=== PATIENT | female | born 1995 | race Caucasian/White ===

== ENCOUNTER 2024-12-21 14:38 | Emergency (ER) | payer SELFPAY ==
[2024-12-21 14:40] VITALS: BP 128/92
[2024-12-21 15:01] LABS: % Basophils 0.4 % (0-2); % Eosinophils 1.1 % (0-6); % Immature Granulocytes 0.3 % (0-0.5); % Lymphocytes 19.3 % (20.5-51.1); % Monocytes 5.8 % (1.7-9.3); % Neutrophils 73.1 % (42.2-75.2); Absolute Eosinophils 0.1 10^3/uL (0-0.7); Absolute Lymphocytes 1.5 10^3/uL (1.2-3.4); Absolute Monocytes 0.5 10^3/uL (0.1-0.6); Absolute Neutrophils 5.9 10^3/uL (1.4-6.5); Hematocrit 42.1 % (37.0-47.0); Hemoglobin 13.8 g/dL (12.0-16.0); Mean Corp Hgb Conc. 32.8 g/dL (33.0-37.0); Mean Corpuscular Volume 79.4 fL (81.0-99.0); Mean Platelet Volume 8.9 fL (7.4-10.4); Nucleated Red Blood Cells % 0 %; Platelet Count 462 10^3/uL (130-400); Red Cell Dist. Width 15.4 % (11.5-14.5)
[2024-12-21 15:12] LABS: HCG, Serum Qualitative Screen Negative
[2024-12-21 15:16] LABS: ALT (SGPT) 35 U/L (0-35); AST (SGOT) 24 U/L (14-36); Alkaline Phosphatase 73 U/L (38-126); Blood Urea Nitrogen 10 mg/dl (7-17); Calcium 9.6 mg/dl (8.4-10.2); Carbon Dioxide 26 mmol/L (22-30); Chloride 104 mmol/L (98-107); Glucose 100 mg/dl (70-99); Potassium 4.5 mmol/L (3.5-5.1); Sodium 139 mmol/L (135-145); Total Bilirubin 0.5 mg/dl (0.2-1.3); Total Protein 8.8 g/dl (6.3-8.2); eGFR > 60.00
[2024-12-21] MEDS: DUONEB 3 ML INH (16:20)
--- NOTE | 2024-12-21 17:10 | ED.GENMED ---
History of Present Illness
General
Chief Complaint: Cold/Flu/URI Symptoms
Source: patient
Exam Limitations: none
Time Seen by Provider: 12/21/24 15:19
History of Present Illness
History of Present Illness:
29-year-old female presents with persistent cough and fatigue 10 days following COVID diagnosis. She had a fever at the onset. She notes her temperature yesterday was elevated at 99. She denies any production to the cough. She still notes some
fatigue. No vomiting. No other complaints at this time
Past History
Past History
ED Past Medical History: None
ED Past Surgical History: None
Social History
Tobacco: Non-smoker
Phy Exam
Physical Exam
Physical Exam:
General: Well-appearing female no acute respiratory distress
HEENT: Normocephalic. Atraumatic. No stridor
heart: RRR, no murmurs
Lungs: CTA bilaterally but has dry cough throughout the exam
Extremities: No cyanosis
SKin: No rash
Course
Orders/Labs/Results
Orders:
Orders
12/21/24 14:44
Test Result ONCE
CR Chest - 2 Views Urgent
Comment:
Reason For Exam: cough
12/21/24 14:50
Complete Blood Count/With Diff Urgent
Comprehensive Metabolic Panel Urgent
HCG, Serum Qualitative Screen Urgent
Comment: Notify provider if positive test present
12/21/24 15:59
Ipratropium/Albuterol Sulfate [Duoneb] 3 ml INH R NOW STA
12/21/24 16:36
Influenza A+B Rapid Molecular Urgent
PRASHANT Source: Nasal Swab
Specimen Description:
Abnormal Lab Results
12/21/24
14:50
MCV 79.4 L fL
(81.0-99.0)
MCH 26.0 L pg
(27.0-31.0)
MCHC 32.8 L g/dL
(33.0-37.0)
RDW 15.4 H %
(11.5-14.5)
Plt Count 462 H 10^3/uL
(130-400)
Lymphocytes % 19.3 L %
(20.5-51.1)
Glucose 100 H mg/dl
(70-99)
Total Protein 8.8 H g/dl
(6.3-8.2)
12/21/24 14:50
12/21/24 14:50
Vital Signs
Initial and Last Documented VS:
Initial Vital Signs
Temp Pulse Resp BP Pulse Ox
98.8 F 105 20 128/92 98
12/21/24 14:40 12/21/24 14:40 12/21/24 14:40 12/21/24 14:40 12/21/24 14:40
Last Documented Vital Signs
Temp Pulse Resp BP Pulse Ox
98.8 F 105 20 128/92 98
12/21/24 14:40 12/21/24 14:40 12/21/24 14:40 12/21/24 14:40 12/21/24 14:40
MDM/Problems Addressed
Differential Diagnosis Includes:
Patient overall looks nontoxic. She did receive some improvement with nebulizer. Chest x-ray is clear. Suspect healing airways post COVID infection. Stable for discharge no indication for admission
*Critical Care Note
Total Time (30-74mins, 75-104mins- exclusive of procedures): Not Applicable
ED Attending Note
-
Portions of this chart may have been created with voice recognition software.� Occasional wrong word or��sound alike� substitutions may have occurred due to the inherent limitations of voice recognition software.
Discharge Plan
Departure
Patient Disposition: Home (Routine Discharge)
Date of Disposition: 12/21/24
Time of Disposition: 17:17
Patient with high blood pressure during this ER visit?: No
Discharge Problem:
COVID-19
Instructions: Acute Bronchitis, Adult (DC)
Prescriptions:
New
albuterol sulfate [Ventolin HFA] 90 mcg/actuation HFA aerosol inhaler
1 inh inhalation Q6H PRN (Reason: shortness of breath or wheezing) Qty: 6.7 0RF
No Action
ketorolac 10 MG tablet
10 mg PO Q6HPRN PRN (Reason: pain) Qty: 20 0RF
Referrals:
NONE,* [Family Provider] -
Stand Alone Forms: Return to Work
Activity Restrictions/Additional Instructions:
Use inhaler if needed. Continue to rest and drink plenty of fluids. Return if worse otherwise follow-up with your doctor
Interventions
Interventions:
*Risk Screen - Suicide Last Done: 12/21/24 14:40
*General Assessment Last Done: 12/21/24 14:40
*Neglect/Abuse Screening Last Done: 12/21/24 14:40
ED- Pulmonary Assessment Last Done: 12/21/24 14:56
Discharge Date and Time
Print Language: FRENCH
== END 2024-12-21 17:50 | disposition home or self-care (01) ==
LOC: EMR 14:38
PROVIDERS: EMERGENCY PHYSICIAN Student in an Organized Health Care Education/Training Program
DX: U07.1 COVID-19 (principal)
CPT/HCPCS: 99284; 94640; 71046; 80053; 84703; 85025; 87502

== ENCOUNTER 2025-01-30 20:15 | Emergency (ER) | payer SELFPAY ==
[2025-01-30 20:21] VITALS: BP 138/95
[2025-01-30 20:47] LABS: % Basophils 0.9 % (0-2); % Eosinophils 2.8 % (0-6); % Immature Granulocytes 0.2 % (0-0.5); % Lymphocytes 32.4 % (20.5-51.1); % Monocytes 4.9 % (1.7-9.3); % Neutrophils 58.8 % (42.2-75.2); Absolute Basophils 0.1 10^3/uL (0-0.2); Absolute Eosinophils 0.2 10^3/uL (0-0.7); Absolute Lymphocytes 2.1 10^3/uL (1.2-3.4); Absolute Monocytes 0.3 10^3/uL (0.1-0.6); Absolute Neutrophils 3.8 10^3/uL (1.4-6.5); Hematocrit 41.8 % (37.0-47.0); Hemoglobin 14.2 g/dL (12.0-16.0); Mean Corpuscular Hgb 26.5 pg (27.0-31.0); Mean Platelet Volume 8.5 fL (7.4-10.4); Nucleated Red Blood Cells % 0 %; Platelet Count 480 10^3/uL (130-400); Red Blood Cell Count 5.36 10^6/uL (4.20-5.40); Red Cell Dist. Width 14.9 % (11.5-14.5); White Blood Cell Count 6.5 10^3/uL (4.8-10.8)
[2025-01-30 21:06] LABS: COVID-19 Antigen Negative (Negative)
[2025-01-30 21:07] LABS: Monotest Negative (Negative)
[2025-01-30 21:12] LABS: ALT (SGPT) 23 U/L (0-35); AST (SGOT) 24 U/L (14-36); Albumin 4.5 g/dl (3.5-5.0); Alkaline Phosphatase 77 U/L (38-126); Blood Urea Nitrogen 11 mg/dl (7-17); Calcium 9.9 mg/dl (8.4-10.2); Carbon Dioxide 22 mmol/L (22-30); Chloride 106 mmol/L (98-107); Glucose 99 mg/dl (70-99); Potassium 4.7 mmol/L (3.5-5.1); Sodium 137 mmol/L (135-145); Total Bilirubin 0.3 mg/dl (0.2-1.3); eGFR > 60.00
--- NOTE | 2025-01-30 22:21 | ED.GENMED ---
History of Present Illness
General
Chief Complaint: Cold/Flu/URI Symptoms
Source: patient
Exam Limitations: none
Time Seen by Provider: 01/30/25 22:05
Nursing documentation reviewed up to this point in time: agreed with
History of Present Illness
History of Present Illness:
29-year-old female presents for coughing fits, dizzy spell this a.m. in the shower, congestion, headache, feels short of breath. Within the past 2 months she has had COVID, flu, bronchitis.
Her symptoms improved until a few days ago when she developed a worsening cough with paroxysms that gets her anxious and feeling like she cannot breathe. She denies fever or chills. Denies N/B/D/C. Denies chest pain.
Past History
Past History
ED Past Medical History: None
ED Past Surgical History: None
Social History
Tobacco: Non-smoker
Alcohol: Occasional
Personal: Single
Living: with family
Employment: Employed
Review of Systems
Review of Systems
Allergies reviewed?: Yes
All Other Systems: ROS reviewed and negative except as documented in HPI and ROS
Constitutional: Denies fever or chills
EENT: Denies sore throat
Respiratory: Reports cough; Denies trouble breathing
Cardiac: Denies chest pain
ABD/GI: Denies abdominal pain, nausea, vomiting or diarrhea
Musculoskeletal: Reports no symptoms
Skin: Reports no symptoms
Neurological: Reports no symptoms
Phy Exam
Physical Exam
Physical Exam:
GENERAL: No acute distress. A&Ox3.
CONSTITUTIONAL: Afebrile.
EYES: clear, conjunctivae normal
ENMT: moist mucus membranes
RESPIRATORY: Regular respirations, nonlabored, lungs clear. No significant cough during stay
CARDIOVASCULAR: Regular rate and rhythm, no murmurs, no rubs.
GI: Soft, nontender, normal BS
MUSCULOSKELETAL: Moves with ease. Well perfused.
SKIN: Warm, dry, pink
PSYCH: Normal mood and affect. Well kept, interactive and appropriate
NEUROLOGIC: Awake, alert and oriented. No focal neurological deficits
Course
Orders/Labs/Results
Orders:
Orders
01/30/25 20:24
CR Chest - 2 Views Urgent
Comment:
Reason For Exam: cough
01/30/25 20:27
COVID-19 Antigen Urgent
Source: Nasal Swab
Complete Blood Count/With Diff Urgent
Comprehensive Metabolic Panel Urgent
Monotest Urgent
Influenza A+B Rapid Molecular Urgent
PRASHANT Source: Nasal Swab
Specimen Description:
01/30/25 22:19
Azithromycin [Zithromax] 500 mg PO NOW STA
Abnormal Lab Results
01/30/25
20:27
MCV 78.0 L fL
(81.0-99.0)
MCH 26.5 L pg
(27.0-31.0)
RDW 14.9 H %
(11.5-14.5)
Plt Count 480 H 10^3/uL
(130-400)
01/30/25 20:27
01/30/25 20:27
Vital Signs
Initial and Last Documented VS:
Initial Vital Signs
Temp Pulse Resp BP Pulse Ox
98.1 F 116 20 138/95 98
01/30/25 20:21 01/30/25 20:21 01/30/25 20:21 01/30/25 20:21 01/30/25 20:21
Last Documented Vital Signs
Temp Pulse Resp BP Pulse Ox
98.6 F 100 20 122/88 98
01/30/25 22:29 01/30/25 22:29 01/30/25 22:29 01/30/25 22:29 01/30/25 22:29
MDM/Problems Addressed
Differential Diagnosis Includes:
Covid, flu, pna, bronchitis
MDM/Problems Addressed:
29-year-old female presents for coughing fits, dizzy spell this a.m. in the shower, congestion, headache, feels short of breath. Within the past 2 months she has had COVID, flu, bronchitis.
Her symptoms improved until a few days ago when she developed a worsening cough with paroxysms that gets her anxious and feeling like she cannot breathe. She denies fever or chills. Denies N/B/D/C. Denies chest pain.
Afebrile, NAD
Lungs CTA
She has not been on antibiotics for her previously diagnosed bronchitis,
Chest x-ray is negative
CBC, CMP unremarkable
COVID-negative
Flu negative
[place] negative
Plan: Treat for bronchitis/atypical pneumonia with azithromycin.
*Critical Care Note
Total Time (30-74mins, 75-104mins- exclusive of procedures): Not Applicable
ED Attending Note
-
Portions of this chart may have been created with voice recognition software.� Occasional wrong word or��sound alike� substitutions may have occurred due to the inherent limitations of voice recognition software.
Discharge Plan
Departure
Patient Disposition: Home (Routine Discharge)
Date of Disposition: 01/30/25
Time of Disposition: 22:18
Patient with high blood pressure during this ER visit?: Yes
Condition: Good
Discharge Problem:
Acute bronchitis
Instructions: Acute Bronchitis, Adult (DC)
Prescriptions:
New
azithromycin [Zithromax] 250 mg tablet
250 mg PO DAILY Qty: 4 0RF
No Action
ketorolac 10 MG tablet
10 mg PO Q6HPRN PRN (Reason: pain) Qty: 20 0RF
albuterol sulfate [Ventolin HFA] 90 mcg/actuation HFA aerosol inhaler
1 inh inhalation Q6H PRN (Reason: shortness of breath or wheezing) Qty: 6.7 0RF
Referrals:
Your, Doctor [Other] - As needed
Stand Alone Forms: Return to Work
Activity Restrictions/Additional Instructions:
As we discussed, I sent a prescription to your pharmacy for the azithromycin, started tomorrow as you were given your first dose here tonight.
Cough drops with menthol may help minimize your cough
Interventions
Interventions:
*Risk Screen - Suicide Last Done: 01/30/25 22:30
*General Assessment Last Done: 01/30/25 20:21
*Neglect/Abuse Screening Last Done: 01/30/25 22:30
*ED- Fall Risk Assessment Last Done: 01/30/25 22:30
*ED COVID-19 Vaccine History Last Done: 01/30/25 22:30
*Nursing Disposition Last Done: 01/30/25 22:34
ED- Pulmonary Assessment Last Done: 01/30/25 22:30
Discharge Date and Time
Discharge Date/Time: 01/30/25 22:54
Print Language: ARMENIAN
[2025-01-30] MEDS: ZITHROMAX 500 MG PO (22:26)
[2025-01-30 22:29] VITALS: BP 122/88
== END 2025-01-30 22:54 | disposition home or self-care (01) ==
LOC: EMR 20:15
PROVIDERS: Emergency Medicine; EMERGENCY PHYSICIAN Emergency Medicine
DX: J20.9 Acute bronchitis, unspecified (principal); R42 Dizziness and giddiness; R51.9 Headache, unspecified; Z11.52 Encounter for screening for COVID-19; R03.0 Elevated blood-pressure reading, without diagnosis of hypertension; Z86.16 Personal history of COVID-19; Z88.0 Allergy status to penicillin; Z88.8 Allergy status to other drugs, medicaments and biological substances
CPT/HCPCS: 99283; 71046; 80053; 85025; 86308; 87502; 87811